=== PATIENT | male | born 1965 | race Caucasian/White ===

== ENCOUNTER 2018-08-20 11:00 | Outpatient (CLI) | payer OTHER | END 2018-08-20 17:00 | disposition home or self-care (01) | LOC: MRI 11:00 | DX: M25.562 Pain in left knee (principal); M25.561 Pain in right knee | CPT/HCPCS: 73721 ==

== ENCOUNTER 2019-05-13 07:42 | Outpatient (CLI) | payer OTHER | END 2019-05-13 07:51 | disposition home or self-care (01) | LOC: EKG 07:42 | DX: I10 Essential (primary) hypertension (principal) ==

== ENCOUNTER 2019-05-13 08:04 | Outpatient (CLI) | payer OTHER | END 2019-05-13 08:14 | disposition home or self-care (01) | LOC: RAD 08:04 | DX: R07.89 Other chest pain (principal) ==